=== PATIENT | male | born 1970 | race Caucasian/White ===

== ENCOUNTER → 2016-10-29 | Outpatient (CLI) | payer BC ==
--- NOTE | 2016-10-29 15:37 | CT ---
EXAMINATION TYPE: CT abdomen pelvis w con DATE OF EXAM: 10/29/2016 COMPARISON: NONE HISTORY: Weight loss without effort. Approximately 50lbs in the past [address] DLP: 688.4 mGycm, Automated Exposure Control for Dose Reduction was Utilized. CONTRAST: CT scan of the abdomen and pelvis is performed with oral and with IV Contrast, patient injected with 100 mL of Omnipaque 300. FINDINGS: LUNG BASES: No significant abnormality is appreciated. LIVER/GB: No significant abnormality is appreciated. PANCREAS: No significant abnormality is seen. SPLEEN: Some scattered splenules are present. ADRENALS: No significant abnormality is seen. KIDNEYS: No significant abnormality is seen. BOWEL: Normal-appearing appendix is seen from cecum. Oral contrast does not reach level of terminal i leum. There is no suspicious small or large bowel dilatation. PROSTATE/SEMINAL VESICLES: No gross abnormality seen. LYMPH NODES: No greater than 1cm abdominal or pelvic lymph nodes are appreciated. Slightly prominent but subcentimeter lymph nodes in the retroperitoneum are present. OSSEOUS STRUCTURES: No significant abnormality is seen. OTHER: No significant additional abnormality is seen. IMPRESSION: No suspicious mass or adenopathy is seen to suggest neoplasm.
== END | disposition home or self-care (01) ==
LOC: RADCTMAIN 14:52
PROVIDERS: ATTEND Family Medicine
DX: R10.9 Unspecified abdominal pain (principal)
CPT/HCPCS: 74177; Q9967

== ENCOUNTER 2018-06-13 09:23 | Emergency (ER) | payer BC, OTHER ==
[2018-06-13 09:31] VITALS: BP 139/93; PULSE 103; RESP 18; TEMP 97.6
[2018-06-13] MEDS ORDERED: LIDOCAINE 1% INJ 10MG/ML (20 ML MDV) SQ ONE (10:08)
[2018-06-13] MEDS ORDERED: DIPH,PERTUS(ACELL)TETVAC-LF 0.5 ML VIAL IM ONE (10:08)
--- NOTE | 2018-06-13 10:12 | ED ---
ENT HPI - General Chief complaint: Dental/Oral Stated complaint: facial injury-[facility] Time Seen by Provider: 06/13/18 09:56 Source: patient, RN notes reviewed Mode of arrival: ambulatory Limitations: no limitations - History of Present Illness Initial comments: This a 48-year-old male presents emergency Department chief complaint of nasal laceration. Patient states that he was at work states that he was working on a frame [employer] and states that it loose. States it came sideways and struck his nose. Patient went of mild pain and laceration to his left nostril. Patient is unsure when his last tetanus was. Denies any other facial pain no headache no dizziness. There is no loss conscious. - Related Data Home Medications Medication Instructions Recorded Confirmed Atorvastatin [Lipitor] 10 mg PO PC-SUPPER 06/13/18 06/13/18 Ertugliflozin Pidolate [Steglatro] 15 mg PO PC-SUPPER 06/13/18 06/13/18 Glimepiride [Amaryl] 2 mg PO AC-BID 06/13/18 06/13/18 Lisinopril [Zestril] 5 mg PO AC-SUPPER 06/13/18 06/13/18 metFORMIN HCL 1,000 mg PO PC-BID 06/13/18 06/13/18 Previous Rx's Medication Instructions Recorded Cephalexin [Keflex] 500 mg PO Q8HR #21 cap 06/13/18 Allergies Allergy/AdvReac Type Severity Reaction Status Date / Time No Known Allergies Allergy Verified 06/13/18 10:08 Review of Systems ROS Statement: Those systems with pertinent positive or pertinent negative responses have been documented in the HPI. ROS Other: All systems not noted in ROS Statement are negative. Past Medical History Past Medical History: Diabetes Mellitus History of Any Multi-Drug Resistant Organisms: None Reported Past Surgical History: No Surgical Hx Reported Past Anesthesia/Blood Transfusion Reactions: No Reported Reaction Past Psychological History: No Psychological Hx Reported Smoking Status: Never smoker Past Alcohol Use History: None Reported Past Drug Use History: None Reported General Exam Limitations: no limitations General appearance: alert, in no apparent distress Head exam: Present: atraumatic, normocephalic, normal inspection Eye exam: Present: normal appearance, PERRL, EOMI. Absent: scleral icterus, conjunctival injection, periorbital swelling ENT exam: Present: normal oropharynx, mucous membranes moist, TM's normal bilaterally, normal external ear exam, other (2 cm laceration over the left nasal edge, mild tenderness no maxillary tenderness no tenderness below the nose). Absent: normal exam Neck exam: Present: normal inspection, full ROM. Absent: tenderness, meningismus, lymphadenopathy Respiratory exam: Present: normal lung sounds bilaterally. Absent: respiratory distress, wheezes, rales, rhonchi, stridor Cardiovascular Exam: Present: regular rate, normal rhythm, normal heart sounds. Absent: systolic murmur, diastolic murmur, rubs, gallop, clicks Neurological exam: Present: alert, oriented X3, CN II-XII intact, reflexes normal. Absent: motor sensory deficit Skin exam: Present: warm, dry, intact, normal color. Absent: rash Course Vital Signs 06/13/18 09:26 Temperature 97.6 F Pulse Rate 103 H Respiratory 18 Rate Blood Pressure 139/93 O2 Sat by Pulse 94 L Oximetry Procedures - Laceration Laceration #1 Consent Obtained: verbal consent Indication: laceration Site: face (Left nostril) Size (cm): 2 Description: irregular Depth: simple, single layer Anesthetic Used: lidocaine 1%, without epi Anesthesia Technique: local infiltration Amount (mls): 3 Pre-repair: wound explored, irrigated extensively, deep structures intact Type of Sutures: nylon Size of Sutures: 6-0 Number of Sutures: 5 Technique: simple, interrupted Patient Tolerated Procedure: well, no complications Medical Decision Making - Medical Decision Making 48-year-old male presented for nasal injury. Patient had laceration of his left nostril was repaired in emergency department. Patient had x-ray which is negative for acute fracture. Patient tetanus was updated at this time. Disposition Clinical Impression: Nasal laceration Disposition: HOME SELF-CARE Condition: Stable Instructions (If sedation given, give patient instructions): Laceration (ED), Care For Your Stitches (ED) Additional Instructions: Have sutures removed in 7 days.Please return to the Emergency Department if symptoms worsen or any other concerns. Prescriptions: Cephalexin [Keflex] 500 mg PO Q8HR #21 cap Is patient prescribed a controlled substance at d/c from ED?: No Referrals: Syd Alvarado MD [Primary Care Provider] - 1-2 days Time of Disposition: 11:04
--- NOTE | 2018-06-13 10:29 | XR ---
EXAMINATION TYPE: XR nasal bone DATE OF EXAM: 06/13/2018 COMPARISON: NONE HISTORY: Nasal pain after injury TECHNIQUE: 3 views of the nasal bone were performed. FINDINGS: Soft tissue swelling is seen of the distal nasal bridge. No acute fracture or dislocation s een in the nasal bone. No subcutaneous emphysema. Visualized paranasal sinuses are well aerated. Nasa l septum is overall midline. IMPRESSION: Soft tissue swelling of the inferior nasal bridge without evidence of acute fracture of t he nasal bone.
== END 2018-06-13 12:08 | disposition home or self-care (01) ==
LOC: EC 09:23
DX: S01.21XA Laceration without foreign body of nose, initial encounter (principal); E11.9 Type 2 diabetes mellitus without complications; Z79.84 Long term (current) use of oral hypoglycemic drugs; Z23 Encounter for immunization; Z79.899 Other long term (current) drug therapy; W22.8XXA Striking against or struck by other objects, initial encounter; Y92.69 Other specified industrial and construction area as the place of occurrence of the external cause; Y99.0 Civilian activity done for income or pay
CPT/HCPCS: 12011; 70160; 90471; 90715; 99283

== ENCOUNTER 2023-08-06 09:34 | Day surgery (SDC) | payer BC ==
[2023-08-02 14:14] VITALS: BMI 30.2
[2023-08-06 10:15] LABS: Glucose,Whole Blood 245 mg/dL (70-110)
[2023-08-06] MEDS: INSULIN ASPART (NovoLOG) 100 UNIT/ML VIAL SQ ONE (10:18)
[2023-08-06] MEDS: LACTATED RINGERS 1,000 ML IV SCH (10:18)
[2023-08-06 10:22] VITALS: TEMP 97.3
[2023-08-06] MEDS ORDERED: PROPOFOL 10 MG/ML 20 ML VIAL IV ONE (10:28)
[2023-08-06] MEDS ORDERED: LIDOCAINE 1% INJ 10MG/ML (20 ML MDV) ONE (10:28)
--- NOTE | 2023-08-06 10:31 | P.GSHP ---
History of Present Illness H&P Date: 08/06/23 Chief Complaint: Abnormal stool test 53-year-old male here for colonoscopy. Says he had a recent Cologuard test that was abnormal. He does not see any bleeding. No bowel complaints. No family history of colon cancer. He has not had a colonoscopy previously. Past Medical History Past Medical History: Diabetes Mellitus, Hyperlipidemia, Hypertension Additional Past Medical History / Comment(s): POSITIVE COLOGARD History of Any Multi-Drug Resistant Organisms: None Reported Past Surgical History: No Surgical Hx Reported Additional Past Surgical History / Comment(s): CYST REMOVED FROM NECK 40 + YRS AGO Past Anesthesia/Blood Transfusion Reactions: No Reported Reaction Smoking Status: Never smoker - Past Family History Mother Family Medical History: No Reported History Medications and Allergies Home Medications Medication Instructions Recorded Confirmed Type Atorvastatin [Lipitor] 10 mg PO PC-SUPPER 06/13/18 08/02/23 History lisinopriL [Zestril] 10 mg PO AC-SUPPER 08/02/23 08/02/23 History metFORMIN HCL ER [Glucophage XR] 500 mg PO DAILY 08/02/23 08/02/23 History Allergies Allergy/AdvReac Type Severity Reaction Status Date / Time No Known Allergies Allergy Verified 08/06/23 10:03 Surgical - Exam Vital Signs Temp Pulse Resp BP Pulse Ox 97.3 F L 72 16 152/89 96 08/06/23 10:08 08/06/23 10:08 08/06/23 10:08 08/06/23 10:08 08/06/23 10:08 Physical exam: General: Well-developed, well-nourished HEENT: Normocephalic, sclerae nonicteric Abdomen: Nontender, nondistended Extremities: No edema Neuro: Alert and oriented Results - Labs Abnormal Lab Results - Last 24 Hours (Table) 08/06/23 Range/Units 10:14 POC Glucose (mg/dL) 245 H (70-110) mg/dL Assessment and Plan (1) Abnormal stool test Narrative/Plan: Will proceed with colonoscopy at this time. Current Visit: Yes Status: Acute Code(s): R19.5 - OTHER FECAL ABNORMALITIES SNOMED Code(s): 202269688
--- NOTE | 2023-08-06 10:43 | P.PCN ---
Date of Procedure: 08/06/23 Procedure(s) Performed: PREOPERATIVE DIAGNOSIS: Abnormal stool test POSTOPERATIVE DIAGNOSIS: Rectal polyp x 2 PROCEDURE: Colonoscopy with snare polypectomy ANESTHESIA: MAC SURGEON: Michael Carlos M.D. SPECIMENS: Rectal polyp x 2 ENDOSCOPIC PROCEDURE: The patient was placed on the endoscopy table in the left decubitus position. The Olympus colonoscope was inserted into the anus and passed under direct visualization to the base of the cecum. The appendiceal orifice was visualized. From that point the scope was slowly withdrawn inspecting all surfaces carefully. There were no neoplastic inflammatory or polypoid lesions throughout the cecum, ascending, transverse, descending, and sigmoid colon. In the rectum 2 polyps were noted both measuring about 8 mm in size. Both removed using the snare with cautery technique. The remainder of the rectum was normal. There was no visible diverticulosis. Digital rectal examination was normal. The patient was taken to the recovery room in stable condition per anesthesia guidelines. RECOMMENDATIONS: Await biopsy results. Anticipate repeat colonoscopy 3 to 5 years.
[2023-08-06 10:49] LABS: Glucose,Whole Blood 240 mg/dL (70-110)
[2023-08-06 11:50] VITALS: BP 125/80; PULSE 78; RESP 18
== END 2023-08-06 11:15 | disposition home or self-care (01) ==
LOC: ORWHC2ENDO 09:34
PROVIDERS: ATTEND Surgery
DX: D12.8 Benign neoplasm of rectum (principal); I10 Essential (primary) hypertension; E78.5 Hyperlipidemia, unspecified; E11.9 Type 2 diabetes mellitus without complications; Z79.84 Long term (current) use of oral hypoglycemic drugs; Z79.899 Other long term (current) drug therapy
CPT/HCPCS: 88305; 45385; J2001; J2704

== ENCOUNTER → 2024-07-10 | Outpatient (CLI) | payer BC | END | disposition home or self-care (01) | LOC: LABWHC1 09:34 | PROVIDERS: ATTEND Nurse Practitioner Family | DX: E11.65 Type 2 diabetes mellitus with hyperglycemia (principal) | CPT/HCPCS: 36415; 83036 ==